=== PATIENT | female | born 1990 | race Caucasian/White ===

== ENCOUNTER 2024-07-08 14:43 | Inpatient (IN) | payer MEDICAID ==
[2024-07-08] MEDS ORDERED: Misoprostol 200 MCG Tab PO PRN (22:02)
[2024-07-08] MEDS ORDERED: Carboprost Tromethamine 250 MCG/1 mL Vial IM PRN (22:02)
[2024-07-08] MEDS ORDERED: Sodium Chloride 0.9% 10 ML Syringe FLUSH PRN (22:02)
[2024-07-08] MEDS ORDERED: Ondansetron 4 MG/2 ML SDV IVPUSH PRN (22:02)
[2024-07-08] MEDS ORDERED: Butorphanol 1 MG/ML SDV IVPUSH PRN (22:02)
[2024-07-08] MEDS ORDERED: Sodium Chloride 0.9% 2.5 ML Syringe FLUSH PRN (22:02)
[2024-07-08] MEDS ORDERED: Methylergonovine 0.2 MG/1 ML Amp IM PRN (22:02)
[2024-07-08] MEDS ORDERED: Sodium Chloride 0.9% 20 ML SDV IV PRN (22:02)
[2024-07-08] MEDS ORDERED: Lidocaine 1% 50 ML MDV INJECT PRN (22:02)
[2024-07-08] MEDS ORDERED: Water For Irrigation,Sterile 1,000 ML Container IRR PRN (22:02)
[2024-07-08] MEDS ORDERED: Terbutaline 1 MG/ML SDV SUBCUT PRN (22:02)
[2024-07-08] MEDS ORDERED: Tranexamic Acid in NACL,ISO-OS 1,000 MG in Premix Bag 1 BAG IV PRN (22:13)
[2024-07-08] MEDS ORDERED: Oxytocin/0.9 % Sodium Chloride 30 UNIT/500 ML BAG IV SCH (22:15)
[2024-07-08 22:19] LABS: HEMATOCRIT 33.1 % (37.0-47.0); HEMOGLOBIN 10.6 g/dL (12.0-16.0); MEAN CORPUSCULAR HEMOGLOBIN 26.7 pg (28.0-32.0); MEAN CORPUSCULAR VOLUME 83.4 fL (83.0-99.0); MEAN PLATELET VOLUME 10.5 fL (9.4-12.3); PLATELET COUNT,PLT 248 K/uL (150-400); RED BLOOD CELL COUNT 3.97 M/uL (4.10-5.30); WHITE BLOOD CELL COUNT,WBC 8.41 K/uL (3.9-11.3)
[2024-07-08] MEDS ORDERED: ePHEDrine 50 MG/ML SDV IVPUSH PRN (22:21)
[2024-07-08] MEDS ORDERED: dexmedeTOMIDine HCl 200 MCG/2 ML SDV EPIDUR SCH (22:30)
[2024-07-08] MEDS: Lactated Ringers 1,000 ML IV SCH (23:00)
[2024-07-08] MEDS: Ampicillin 2 GM in Sodium Chloride 0.9% 100 ML IV ONE (23:01)
[2024-07-08] MEDS: Misoprostol 25 MCG (1/4 of 100 MCG) Tab VAG PRN (23:41)
[2024-07-08] MEDS: Misoprostol 25 MCG (1/4 of 100 MCG) Tab PO PRN (23:41)
[2024-07-09] MEDS: Pantoprazole 40 MG in Sodium Chloride 0.9% 10 ML IVPUSH ONE ×2 (00:50→09:45)
[2024-07-09] MEDS: Ampicillin 1 GM in Sodium Chloride 0.9% 50 ML IV SCH (03:16)
[2024-07-09] MEDS: Misoprostol 25 MCG (1/4 of 100 MCG) Tab VAG PRN (04:12)
[2024-07-09] MEDS ORDERED: Misoprostol 200 MCG Tab RECTAL PRN (05:19)
[2024-07-09] MEDS: Ampicillin 2 GM Vial ONE (10:15)
[2024-07-09] MEDS: Pantoprazole 40 MG Vial ONE ×2 (10:15→11:28)
[2024-07-09] MEDS: Misoprostol 25 MCG (1/4 of 100 MCG) Tab ONE ×3 (10:15→11:28)
[2024-07-09] MEDS: Sodium Chloride 0.9% 100 ML ONE (10:15)
[2024-07-09] MEDS: Ampicillin 1 GM Vial ONE ×3 (10:15→11:28)
[2024-07-09] MEDS: Sodium Chloride 0.9% 50 ML ONE ×3 (10:19→11:28)
[2024-07-09] MEDS: Oxytocin/0.9 % Sodium Chloride 30 UNIT/500 ML BAG IV SCH (11:23)
[2024-07-09] MEDS: Oxytocin/0.9 % Sodium Chloride 30 UNIT/500 ML BAG ONE (11:28)
[2024-07-09] MEDS: Ropivacaine HCl/PF 400 MG in Premix Bag 1 BAG EPIDUR SCH (11:59)
[2024-07-09] MEDS: Phenylephrine HCl In 0.9% NaCl 1 MG/10 ML Syringe IVPUSH PRN (12:00)
[2024-07-09] MEDS ORDERED: Docusate Sodium 100 MG Cap PO PRN (17:15)
[2024-07-09] MEDS ORDERED: Simethicone 80 MG Tab.Chew PO PRN (17:15)
[2024-07-09 17:56] LABS: PH,UMBILICAL ARTERIAL 7.33 (7.18-7.38); PH,UMBILICAL VENOUS 7.23 (7.25-7.45)
[2024-07-09] MEDS: Benzocaine/Menthol 20%-0.5% Spray 78 GM Cannister TOP PRN (18:52)
[2024-07-09] MEDS: Witch Hazel Medicated Pads 40/Jar TOP PRN (18:53)
[2024-07-09] MEDS: Ibuprofen 800 MG Tab PO PRN (19:09)
[2024-07-09] MEDS: Acetaminophen 500 MG Tab PO PRN (22:09)
[2024-07-10 05:40] LABS: BASOPHILS ABSOLUTE AUTO 0.03 K/uL (0.00-0.20); BASOPHILS PERCENT AUTO 0.5 % (0.0-1.0); EOSINOPHILS ABSOLUTE AUTO 0.04 K/uL (0.00-0.45); EOSINOPHILS PERCENT AUTO 0.7 % (0.0-6.0); HEMATOCRIT 28.6 % (37.0-47.0); HEMOGLOBIN 9.1 g/dL (12.0-16.0); IMMATURE GRAN ABSOLUTE AUTO 0.01 K/uL (0.00-0.05); IMMATURE GRAN PERCENT AUTO 0.2 % (0.0-0.4); LYMPHOCYTES PERCENT AUTO 35.8 % (24.0-44.0); MEAN CORPUSCULAR HEMOGLOBIN 26.9 pg (28.0-32.0); MEAN CORPUSCULAR HGB CONC 31.8 g/dL (32.0-36.0); MEAN CORPUSCULAR VOLUME 84.6 fL (83.0-99.0); MEAN PLATELET VOLUME 10.5 fL (9.4-12.3); MONOCYTES ABSOLUTE AUTO 0.45 K/uL (0.00-0.80); MONOCYTES PERCENT AUTO 7.3 % (0.0-8.0); NEUTROPHILS ABSOLUTE AUTO 3.41 K/uL (1.80-7.70); NEUTROPHILS PERCENT AUTO 55.5 % (41.0-71.0); PLATELET COUNT,PLT 187 K/uL (150-400); RED BLOOD CELL COUNT 3.38 M/uL (4.10-5.30); WHITE BLOOD CELL COUNT,WBC 6.14 K/uL (3.9-11.3)
[2024-07-10] MEDS ORDERED: Acetaminophen 500 MG Tab ONE (09:51)
[2024-07-10] MEDS: Ropivacaine HCl/PF 200 ML ONE (12:19)
[2024-07-10] MEDS: Phenylephrine HCl In 0.9% NaCl 1 MG/10 ML Syringe ONE ×2 (12:19→12:20)
[2024-07-10] MEDS: dexmedeTOMIDine HCl 200 MCG/2 ML SDV ONE (12:19)
[2024-07-10] MEDS: Sodium Chloride 0.9% 50 ML ONE (12:20)
[2024-07-10] MEDS: Witch Hazel Medicated Pads 40/Jar TOP ONE (12:20)
[2024-07-10] MEDS: Ampicillin 1 GM Vial ONE (12:20)
[2024-07-10] MEDS: Benzocaine/Menthol 20%-0.5% Spray 78 GM Cannister ONE (12:20)
[2024-07-10] MEDS: Ibuprofen 800 MG Tab ONE ×2 (12:20→12:21)
[2024-07-10] MEDS: Acetaminophen 500 MG Tab ONE ×2 (12:21)
[2024-07-10] MEDS ORDERED: Ibuprofen 800 MG Tab ONE (17:58)
[2024-07-11] MEDS ORDERED: Acetaminophen 500 MG Tab ONE (07:53)
[2024-07-11] MEDS ORDERED: Ibuprofen 800 MG Tab ONE (08:08)
[2024-07-11] MEDS ORDERED: Lanolin 100% Cream 7 GM Tube ONE (08:08)
[2024-07-11] MEDS: Lanolin 100% Cream 7 GM Tube TOP PRN (08:10)
== END 2024-07-11 12:50 | disposition home or self-care (01) | DRG 806 ==
LOC: MW.OBCHECK 14:43 → MW.OB 14:45 → MW.OBCHECK 18:04 → MW.OB 19:15 → OBSVTOIN 07-09 15:30 → MW.OB 07-09 19:11
PROVIDERS: ADMIT Obstetrics & Gynecology; ATTEND Obstetrics & Gynecology
PROC: 10E0XZZ Delivery of Products of Conception, External Approach (ICD-10-PCS; principal; 2024-07-09)
PROC: 3E0R3BZ Introduction of Anesthetic Agent into Spinal Canal, Percutaneous Approach (ICD-10-PCS; 2024-07-09)
PROC: 3E033VJ Introduction of Other Hormone into Peripheral Vein, Percutaneous Approach (ICD-10-PCS; 2024-07-09)
PROC: 3E0DXGC Introduction of Other Therapeutic Substance into Mouth and Pharynx, External Approach (ICD-10-PCS; 2024-07-09)
PROC: 0HQ9XZZ Repair Perineum Skin, External Approach (ICD-10-PCS; 2024-07-09)
DX: O99.214 Obesity complicating childbirth (principal); O41.03X0 Oligohydramnios, third trimester, not applicable or unspecified; Z37.0 Single live birth; Z3A.37 37 weeks gestation of pregnancy; O69.1XX0 Labor and delivery complicated by cord around neck, with compression, not applicable or unspecified; Z79.82 Long term (current) use of aspirin; Z79.899 Other long term (current) drug therapy; Z98.890 Other specified postprocedural states; Z90.49 Acquired absence of other specified parts of digestive tract; O36.5930 Maternal care for other known or suspected poor fetal growth, third trimester, not applicable or unspecified; O99.02 Anemia complicating childbirth; O70.0 First degree perineal laceration during delivery
CPT/HCPCS: 01967; 36415; 51702; 59025; 59409; 76805; 76805-26; 76819; 76819-26; 82803; 85025; 85027; 86592; 86850; 86900; 86901; A9270-GY; J0290; J2371; J2470; J2590; J2795; J7120